=== PATIENT | male | born 1990 | race Two or more races ===

== ENCOUNTER 2020-05-12 10:36 | Emergency (ER) | payer SELFPAY ==
[~2020-05-12] VITALS: Ht 177.8 cm; Wt 90.9 kg
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
[2020-05-12 12:20] VITALS: BP 159/101
== END 2020-05-12 12:21 | disposition home or self-care (01) ==
LOC: ER 10:36
DX: R07.89 Other chest pain (principal); L29.9 Pruritus, unspecified
CPT/HCPCS: 99283